=== PATIENT | male | born 1960 | race Caucasian/White ===

== ENCOUNTER 2021-03-15 08:21 | Outpatient (CLI) | payer BC ==
[2021-03-15] MEDS ORDERED: Magnevist 469MG/ML 20 ML VIAL ONE (09:32)
== END 2021-03-15 08:22 | disposition home or self-care (01) ==
LOC: TBSIIMAG 08:21
PROVIDERS: ATTEND Urology
DX: C61 Malignant neoplasm of prostate (principal)
CPT/HCPCS: 72197

== ENCOUNTER 2021-07-24 07:57 | Outpatient (CLI) | payer BC | END 2021-07-24 07:58 | disposition home or self-care (01) | LOC: RAD 07:57 | PROVIDERS: ATTEND Urology | DX: C61 Malignant neoplasm of prostate (principal) | CPT/HCPCS: 51600; 74430 ==

== ENCOUNTER 2021-10-19 11:24 | Emergency (ER) | payer OTHER, BC ==
[~2021-10-19 11:24] MED LIST: Iopamidol-370 76% 500 ML 1 ML ONE
== END 2021-10-19 14:07 | disposition home or self-care (01) ==
LOC: ERS 11:24
DX: M25.512 Pain in left shoulder (principal); R07.81 Pleurodynia; V43.52XA Car driver injured in collision with other type car in traffic accident, initial encounter
CPT/HCPCS: 71260; 74177; 93005

== ENCOUNTER 2022-03-15 09:08 | Outpatient (CLI) | payer BC | END 2022-03-15 09:09 | disposition home or self-care (01) | LOC: BICCT 09:08 | PROVIDERS: ATTEND Urology | DX: K62.5 Hemorrhage of anus and rectum (principal); N28.1 Cyst of kidney, acquired; Z90.79 Acquired absence of other genital organ(s) | CPT/HCPCS: 74178; 82565 ==